=== PATIENT | male | born 1965 | race African-American/Black ===

== ENCOUNTER 2024-10-24 22:43 | Emergency (ER) | payer OTHER ==
[2024-10-24 23:03] VITALS: RESP 20
--- NOTE | 2024-10-24 23:38 | XR ---
EXAMINATION TYPE: XR chest 2V DATE OF EXAM: 10/24/2024 11:26 PM COMPARISON: None TECHNIQUE: XR chest 2V Frontal and lateral views of the chest. CLINICAL INDICATION:Male, 58 years old with history of upper resp; FINDINGS: Lungs/Pleura: There is no evidence of pleural effusion, focal consolidation, or pneumothorax. Eventr ation of the right hemidiaphragm. Pulmonary vascularity: Unremarkable. Heart/mediastinum: Cardiomediastinal silhouette is unremarkable. Musculoskeletal: No acute osseous pathology. IMPRESSION: No acute cardiopulmonary disease/process. [facility], , 10/24/2024 11:36 PM
[2024-10-24 23:47] LABS: Influenza A Not Detected (Not Detectd); Influenza B Not Detected (Not Detectd); RSV Not Detected (Not Detectd)
--- NOTE | 2024-10-24 23:52 | ED ---
URI HPI - General Source: patient, RN notes reviewed Mode of arrival: ambulatory Limitations: no limitations <Monica Rodney - Last Filed: 10/24/24 23:51> <Kristi Paez - Last Filed: 10/25/24 04:21> - General Chief Complaint: Upper Respiratory Infection Stated Complaint: SOB, low o2 Time Seen by Provider: 10/24/24 23:51 - History of Present Illness Initial Comments: Quick [id number] male seen for cough x 5 days with associated sinus congestion and shortness of breath. Denies fever or chest pain. (Monica Rodney) 58-year-old male with no reported medical history presenting to emergency department for complaint of URI symptoms over the past 5 to 7 days. He states that he has been experiencing a productive cough with green mucus, sinus pressure and congestion and feeling mildly short of breath. He endorses chills. Denies chest pain. Patient is currently at [facility] for cocaine abuse. (Kristi Paez) - Related Data Previous Rx's Medication Instructions Recorded Azithromycin [Zithromax] 500 mg PO DAILY #5 tab 10/25/24 Allergies Allergy/AdvReac Type Severity Reaction Status Date / Time No Known Allergies Allergy Verified 10/25/24 01:40 Review of Systems ROS Other: All systems not noted in ROS Statement are negative. <Monica Rodney - Last Filed: 10/24/24 23:51> ROS Other: All systems not noted in ROS Statement are negative. <Kristi Paez - Last Filed: 10/25/24 04:21> ROS Statement: Those systems with pertinent positive or pertinent negative responses have been documented in the HPI. Past Medical History Past Medical History: No Reported History History of Any Multi-Drug Resistant Organisms: None Reported Past Surgical History: No Surgical Hx Reported Past Psychological History: No Psychological Hx Reported Smoking Status: Current every day smoker Past Alcohol Use History: None Reported Past Drug Use History: Cocaine <Monica Rodney - Last Filed: 10/24/24 23:51> General Exam Limitations: no limitations <Monica Rodney - Last Filed: 10/24/24 23:51> General appearance: alert, in no apparent distress ENT exam: Present: normal exam, mucous membranes moist Neck exam: Present: normal inspection. Absent: tenderness, meningismus, lymphadenopathy Respiratory exam: Present: rhonchi (Right lower lung field). Absent: normal lung sounds bilaterally, respiratory distress, wheezes, rales, stridor Cardiovascular Exam: Present: regular rate, normal rhythm, normal heart sounds. Absent: systolic murmur, diastolic murmur, rubs, gallop, clicks GI/Abdominal exam: Present: soft, normal bowel sounds. Absent: distended, tenderness, guarding, rebound, rigid Extremities exam: Present: normal inspection, full ROM, normal capillary refill. Absent: tenderness, pedal edema, joint swelling, calf tenderness <Kristi Paez - Last Filed: 10/25/24 04:21> - General Exam Comments Initial Comments: Visual Physical Exam Vital signs reviewed General: Well-appearing, nontoxic, no acute distress. Head: Normocephalic, atraumatic Eyes: PERRLA, EOMI ENT: Airway patent Chest: Nonlabored breathing Skin: No visual rash, normal skin tone Neuro: Alert and oriented 3 Musculoskeletal: No gross abnormalities (Monica Rodney) Course Vital Signs 10/24/24 10/25/24 22:59 02:25 Temperature 99.0 F 97.8 F Pulse Rate 75 72 Respiratory 20 20 Rate Blood Pressure 132/78 137/79 O2 Sat by Pulse 96 98 Oximetry Medical Decision Making <Monica Rodney - Last Filed: 10/24/24 23:51> <Kristi Paez - Last Filed: 10/25/24 04:21> - Medical Decision Making I completed the quick note portion of this chart signed Monica Rodney PA-C (Monica Rodney) Was pt. sent in by a medical professional or institution ([facility], [employer], urgent care, hospital, or snf...) When possible be specific @ -No Did you speak to anyone other than the patient for history (EMS, parent, family, police, friend...)? What history was obtained from this source @ -No Did you review nursing and triage notes (agree or disagree)? Why? @ -I reviewed and agree with nursing and triage notes Were old charts reviewed (outside hosp., previous admission, EMS record, old EKG, old radiological studies, urgent care reports/EKG's, snf records)? Report findings @ -No old charts were reviewed Differential Diagnosis (chest pain, altered mental status, abdominal pain women, abdominal pain men, vaginal bleeding, weakness, fever, dyspnea, syncope, headache, dizziness, GI bleed, back pain, seizure, CVA, palpatations, mental health, musculoskeletal)? @ -COVID 19, RSV, influenza, pneumonia, acute bronchitis, URI, this list is not all inclusive EKG interpreted by me (3pts min.). @ -None X-rays interpreted by me (1pt min.). @ -Chest x-ray completed with no acute cardiopulmonary process or disease. CT interpreted by me (1pt min.). @ -None done U/S interpreted by me (1pt. min.). @ -None done What testing was considered but not performed or refused? (CT, X-rays, U/S, labs)? Why? @ -None What meds were considered but not given or refused? Why? @ -None Did you discuss the management of the patient with other professionals (professionals i.e. , PA, [employer], lab, RT, psych nurse, clinical social worker, multimedia instructional designer, teacher, fisheries technical officer, manager of case)? Give summary @ -No Was smoking cessation discussed for >3mins.? @ -No Was critical care preformed (if so, how long)? @ -No Were there social determinants of health that impacted care today? How? (Homelessness, low income, unemployed, alcoholism, drug addiction, transportation, low edu. Level, literacy, decrease access to med. care, longterm, rehab)? @ -No Was there de-escalation of care discussed even if they declined (Discuss DNR or withdrawal of care, Hospice)? DNR status @ -No What co-morbidities impacted this encounter? (DM, HTN, Smoking, COPD, CAD, Cancer, CVA, ARF, Chemo, Hep., AIDS, mental health diagnosis, sleep apnea, morbid obesity)? @ -None Was patient admitted / discharged? Hospital course, mention meds given and route, prescriptions, significant lab abnormalities, going to OR and other pertinent info. @ -Discharge. 58-year-old male presenting with URI symptoms. Patient was reeval emergency room waiting room as a quick note where chest x-ray was ordered addition to viral swab. On my evaluation the patient is resting comfortably no signs acute distress. His vitals are stable. He is noted to have rhonchi of the right lower lung field. Chest x-ray viral swabs unremarkable. With concern for pneumonia with symptoms of productive cough, adventitious sounds of the right lower lung moss and fevers in addition to productive cough and chest discomfort he will be treated with azithromycin. Case discussed with Dr. Quan Undiagnosed new problem with uncertain prognosis? @ -No Drug Therapy requiring intensive monitoring for toxicity (Heparin, Nitro, Insulin, Cardizem)? @ -No Were any procedures done? @ -No Diagnosis/symptom? @ -Pneumonia Acute, or Chronic, or Acute on Chronic? @ -Acute Uncomplicated (without systemic symptoms) or Complicated (systemic symptoms)? @ -Uncomplicated Side effects of treatment? @ -No Exacerbation, Progression, or Severe Exacerbation? @ -No Poses a threat to life or bodily function? How? (Chest pain, [place], NM, pneumonia, PE, COPD, DKA, ARF, appy, cholecystitis, CVA, Diverticulitis, Homicidal, Suicidal, threat to staff... and all critical care pts) @ -No (Kristi Paez) - Lab Data Lab Results 10/24/24 Range/Units 23:02 Influenza Type A (PCR) Not Detected (Not Detectd) Influenza Type B (PCR) Not Detected (Not Detectd) RSV (PCR) Not Detected (Not Detectd) SARS-CoV-2 (PCR) Not Detected (Not Detectd) Disposition <Monica Rodney - Last Filed: 10/24/24 23:51> Is patient prescribed a controlled substance at d/c from ED?: No Time of Disposition: 01:36 <Kristi Paez - Last Filed: 10/25/24 04:21> Clinical Impression: Pneumonia Disposition: HOME SELF-CARE Condition: Good Instructions (If sedation given, give patient instructions): Pneumonia (ED) Additional Instructions: return to the emergency department for any new or worsening symptoms. complete full course of antibiotics as prescribed. Prescriptions: Azithromycin [Zithromax] 500 mg PO DAILY #5 tab Referrals: None,Stated [Primary Care Provider] - 1-2 days
[2024-10-25] MEDS: AZITHROMYCIN 500 MG TAB PO STA (02:15)
[2024-10-25 02:29] VITALS: BP 137/79; PULSE 72; TEMP 97.8
== END 2024-10-25 02:30 | disposition home or self-care (01) ==
LOC: EC 22:43
DX: J18.9 Pneumonia, unspecified organism (principal); F17.200 Nicotine dependence, unspecified, uncomplicated
CPT/HCPCS: 71046; 87636; 99285